=== PATIENT | male | born 1975 | race Caucasian/White ===

== ENCOUNTER 2017-12-22 14:11 | Emergency (ER) | payer SELFPAY ==
[2017-12-22 14:18] VITALS: BP 121/77
--- NOTE | 2017-12-22 16:05 | ER Document Report ---
ED Oral Problem - General Chief Complaint: Mouth Problem Stated Complaint: MOUTH PAIN, SWELLING Time Seen by Provider: 12/22/17 15:26 Mode of Arrival: Ambulatory Information source: Patient TRAVEL OUTSIDE OF THE [place] IN LAST 30 DAYS: No - HPI Patient complains to provider of: Toothache Onset: Last week Onset: Gradual Severity: Moderate Notes: Patient arrives with complaints of upper gum pain for the last several days. Patient states that he noticed a "bubble" to the left upper gum and feels like the right upper gum is swollen. He denies fevers. He denies any difficulty breathing or swallowing. He denies any nausea, vomiting, diarrhea. No facial swelling. No rash. No headache, blurred vision, numbness tingling or weakness. No chest pain or shortness of breath. No other complaints at this time. - Related Data Allergies/Adverse Reactions: No Known Allergies Allergy (Verified 12/22/17 15:33) Past Medical History - Social History Smoking Status: Current Every Day Smoker Chew tobacco use (# tins/day): No Frequency of alcohol use: None Drug Abuse: None Family History: Reviewed & Not Pertinent Patient has suicidal ideation: No Patient has homicidal ideation: No Renal/ Medical History: Denies: Hx Peritoneal Dialysis Infectious Medical History: Reports: Hx MRSA Review of Systems - Review of Systems -: Yes All other systems reviewed and negative Physical Exam - Vital signs Vitals: Temp Pulse Resp BP Pulse Ox 98.2 F 86 16 121/77 97 12/22/17 14:17 12/22/17 14:17 12/22/17 14:17 12/22/17 14:17 12/22/17 14:17 - Notes Notes: GENERAL: alert, cooperative, nontoxic, no distress. HEAD: normocephalic, atraumatic EYES: conjunctiva pink without discharge, no external redness or swelling. EARS: no external swelling, no external redness, no mastoid redness, swelling, tenderness. Ear canals are clear without swelling or drainage. TMs pearly andrea , no redness, no bulging, normal landmarks, no perforation. NOSE: atraumatic, no external swelling. clear rhinorrhea noted. MOUTH/THROAT: mucous membranes moist and pink, posterior pharynx without erythema, swelling, exudate. No trismus or drooling. Widespread dental decay. Small draining abscess to the left upper gum around tooth #11. No abscess noted to the right upper gums. No sublingual swelling or induration. NECK: soft, supple, full range of motion, no meningismus. CHEST: no distress, lungs clear and equal throughout. No wheezing, rales, rhonchi. CARDIAC: regular rate and rhythm, no murmur, normal capillary refill, normal pulses. No peripheral edema noted. BACK: full range of motion, no CVA tenderness. EXTREMITIES: full range of motion of all extremities. No redness, no swelling. NEURO: alert and oriented xO x 3, no focal deficits, full range of motion of all extremities. PYSCH: appropriate mood, affect. Patient is cooperative. SKIN: pink, warm, dry, no rash. Course - Re-evaluation Re-evalutation: 12/22/17 16:01 Patient is nontoxic appearing with stable vitals. Patient arrives with gum pain for the last several days. He is noted to have a small draining abscess to the left upper gum. There is no abscess noted to the right upper gums. He is in no distress. No sign of Otoniel's angina. Airway is not compromised. Patient will be discharged home with amoxicillin, 6 tramadol, Naprosyn, Peridex and instructions to follow-up with a dentist at the next available appointment. Instructed to stop smoking. Is instructed to follow-up sooner if he develops increasing pain, fever, swelling, difficulty breathing or swallowing, or any further concerns. The patient's emergency department workup and current diagnosis were explained to the patient and or family. Follow-up instructions were provided. Medications if prescribed were discussed. Instructions for when to return to the emergency department including specific worrisome symptoms were discussed with the patient and/or family. The patient is noted to have elevated blood pressure during today's emergency department visit. The patient was informed of this finding. The patient was instructed that this may be related to pre-hypertension and requires further evaluation with a primary care provider. The patient has no hypertensive symptoms at this time. - Vital Signs Vital signs: Temp Pulse Resp BP Pulse Ox 98.2 F 86 16 121/77 97 12/22/17 14:17 12/22/17 14:17 12/22/17 14:17 12/22/17 14:17 12/22/17 14:17 Discharge - Discharge Clinical Impression: Dental caries, Dental abscess Condition: Stable Disposition: HOME, SELF-CARE Instructions: Dental Infection or Abscess ([facility]), Dentist Additional Instructions: Take medications as prescribed. Stop smoking. Follow-up with a dentist at the next available appointment. Follow-up sooner for increasing pain, fever, swelling, persistent vomiting, or any further concerns. Your blood pressure was elevated during today's visit. Have this rechecked with your doctor. The medication you were prescribed today may cause drowsiness. Do not drive or operate heavy machinery while taking this medication. Prescriptions: Tramadol HCl [Ultram 50 mg Tablet] 50 mg PO Q6HP PRN #6 tablet PRN Reason: Amoxicillin Trihydrate [Amoxil 500 mg Capsule] 500 mg PO TID #30 cap Chlorhexidine Gluconate [Peridex 0.12% Oral Rinse 473 ml] 15 ml MM TID #1 bottle Naproxen [Naprosyn] 500 mg PO BID #20 tablet Forms: Elevated Blood Pressure, Smoking Cessation Education Referrals: [facility] [Provider Group] - Follow up as needed [facility] [Provider Group] - Follow up as needed
== END 2017-12-22 16:19 | disposition home or self-care (01) ==
LOC: ER 14:11
DX: K04.7 Periapical abscess without sinus (principal); K02.9 Dental caries, unspecified; R03.0 Elevated blood-pressure reading, without diagnosis of hypertension; F17.200 Nicotine dependence, unspecified, uncomplicated; Z86.14 Personal history of Methicillin resistant Staphylococcus aureus infection
CPT/HCPCS: 99282

== ENCOUNTER 2017-12-28 14:19 | Emergency (ER) | payer SELFPAY ==
--- NOTE | 2017-12-28 15:07 | ER Document Report ---
HPI - HPI Patient complains to provider of: dental pain Onset: Other Onset/Duration: Persistent Quality of pain: Achy Pain Level: 4 Context: Patient presents emergency department with complaints of dental pain. Reports he was seen here last week prescribed some antibiotics and pain medication. He reports the area was feeling better but now is switched to the other side of his mouth. He reports prior to my arrival in the room he felt something pop in his mouth and a nasty taste. He is thinking abscess popped on its own. He denies fever vomiting diarrhea. He reports he still has antibiotics left and he is also scheduled to meet with a dentist on . Patient has clear voice opens mouth wide no distress no trismus no ludwigs. Associated Symptoms: None Exacerbated by: Denies Relieved by: Denies Similar symptoms previously: Yes Recently seen / treated by doctor: Yes Past Medical History - General Information source: Patient - Social History Smoking Status: Current Every Day Smoker Chew tobacco use (# tins/day): No Frequency of alcohol use: None Drug Abuse: None Family History: Reviewed & Not Pertinent Patient has suicidal ideation: No Patient has homicidal ideation: No - Medical History Medical History: Negative Renal/ Medical History: Denies: Hx Peritoneal Dialysis Infectious Medical History: Reports: Hx MRSA Surgical Hx: Negative Vertical Provider Document - CONSTITUTIONAL Agree With Documented VS: Yes Exam Limitations: No Limitations General Appearance: WD/WN, No Apparent Distress - INFECTION CONTROL TRAVEL OUTSIDE OF THE [place] IN LAST 30 DAYS: No - HEENT HEENT: Atraumatic, Normocephalic. negative: Pharyngeal Erythema Mouth Diagram: 1 - c/o soreness to #7 gum, no obvious abscess, opens mouth wide, good airway, no ludwigs, voice clear, widespread dental decay - NECK Neck: Normal Inspection, Supple. negative: Lymphadenopathy-Left, Lymphadenopathy-Right - RESPIRATORY Respiratory: Breath Sounds Normal, No Respiratory Distress O2 Sat by Pulse Oximetry: 98 - CARDIOVASCULAR Cardiovascular: Regular Rate - GI/ABDOMEN Gastrointestinal: Abdomen Soft, Abdomen Non-Tender - MUSCULOSKELETAL/EXTREMETIES Musculoskeletal/Extremeties: JOHN KAMARA - NEURO Level of Consciousness: Awake, Alert, Appropriate Motor/Sensory: No Motor Deficit - DERM Integumentary: Warm, Dry Course - Re-evaluation Re-evalutation: 12/28/17 17:00 No sign of abscess widespread dental decay, patient was instructed to continue antibiotics and follow-up with dental on as scheduled. He verbalized understanding tall instructions. - Vital Signs Vital signs: Temp Pulse Resp BP Pulse Ox 98.8 F 79 18 135/78 H 98 12/28/17 14:23 12/28/17 14:23 12/28/17 14:23 12/28/17 14:23 12/28/17 14:23 Discharge - Discharge Clinical Impression: Pain, dental Condition: Stable Disposition: HOME, SELF-CARE Instructions: [facility], Toothache ([facility]) Additional Instructions: *You have been evaluated for dental pain *Continue to take medications as prescribed, use the rinse *Follow up with dentist as scheduled *Return to ED for worsening condition, changes, needs Monitor your blood pressure. Your blood pressure was elevated today. This may be because you were anxious, in pain or because you need medication. It is important to follow up with your primary care provider for full evaluation. Forms: Elevated Blood Pressure
[2017-12-28 15:27] VITALS: BP 117/86
== END 2017-12-28 15:26 | disposition home or self-care (01) ==
LOC: ER 14:19
DX: K08.89 Other specified disorders of teeth and supporting structures (principal); F17.200 Nicotine dependence, unspecified, uncomplicated
CPT/HCPCS: 99282

== ENCOUNTER 2018-07-09 18:06 | Emergency (ER) | payer SELFPAY ==
[2018-07-09 19:04] VITALS: BP 130/77
[2018-07-09] MEDS ORDERED: HYDROXYZINE PAMOATE 50 MG CAPSULE PO ONE (20:03)
--- NOTE | 2018-07-09 20:03 | ER Document Report ---
ED Skin Rash/Insect Bite/Abscs - General Chief Complaint: Insect Bite Stated Complaint: RASH Time Seen by Provider: 07/09/18 19:51 Mode of Arrival: Ambulatory Information source: Patient Notes: 42-year-old male presents to ED for complaint of insect bites to bilateral hands and back. He states that he started yesterday after he was working out in the yard [employer]. He states he is itching all over. TRAVEL OUTSIDE OF THE [place] IN LAST 30 DAYS: No - HPI Patient complains to provider of: Skin rash/lesion Onset: Other - States started yesterday Onset/Duration: Worse Quality of pain: No pain Severity: None Pain Level: Denies Skin Character: Rash - States they are insect bites Quality of rash: Itchy Identify cause: Yes Exacerbated by: Denies Relieved by: Denies Similar symptoms previously: Yes Recently seen / treated by doctor: No - Related Data Allergies/Adverse Reactions: No Known Allergies Allergy (Verified 07/09/18 18:07) Past Medical History - General Information source: Patient - Social History Smoking Status: Current Every Day Smoker Cigarette use (# per day): Yes - Pack per day Chew tobacco use (# tins/day): No Smoking Education Provided: Yes - 4 minutes Frequency of alcohol use: None Drug Abuse: None Occupation: [employer] Lives with: Spouse/Significant other Family History: Reviewed & Not Pertinent Patient has suicidal ideation: No Patient has homicidal ideation: No - Past Medical History Cardiac Medical History: Reports: None Pulmonary Medical History: Reports: None EENT Medical History: Reports: None Neurological Medical History: Reports: None Endocrine Medical History: Reports: None Renal/ Medical History: Reports: None Malignancy Medical History: Reports None GI Medical History: Reports: None Musculoskeletal Medical History: Reports None Skin Medical History: Reports Hx MRSA Psychiatric Medical History: Reports: None Traumatic Medical History: Reports: None Infectious Medical History: Reports: Hx MRSA Surgical Hx: Negative Past Surgical History: Reports: None Review of Systems - Review of Systems Constitutional: No symptoms reported EENT: No symptoms reported Cardiovascular: No symptoms reported Respiratory: No symptoms reported Gastrointestinal: No symptoms reported Genitourinary: No symptoms reported Male Genitourinary: No symptoms reported Musculoskeletal: No symptoms reported Skin: Rash Hematologic/Lymphatic: No symptoms reported Neurological/Psychological: No symptoms reported -: Yes All other systems reviewed and negative Physical Exam - Vital signs Vitals: Temp Pulse Resp BP Pulse Ox 98.5 F 96 18 130/77 H 98 07/09/18 19:02 07/09/18 19:02 07/09/18 19:02 07/09/18 19:02 07/09/18 19:02 Interpretation: Normal - General General appearance: Appears well, Alert - HEENT Head: Normocephalic, Atraumatic Eyes: Normal Pupils: PERRL - Respiratory Respiratory status: No respiratory distress Chest status: Nontender Breath sounds: Normal Chest palpation: Normal - Cardiovascular Rhythm: Regular Heart sounds: Normal auscultation Murmur: No - Abdominal Inspection: Normal Distension: No distension Bowel sounds: Normal Tenderness: Nontender Organomegaly: No organomegaly - Back Back: Normal, Nontender - Extremities General upper extremity: Normal inspection, Nontender, Normal color, Normal ROM , Normal temperature General lower extremity: Normal inspection, Nontender, Normal color, Normal ROM , Normal temperature, Normal weight bearing. No: Sergio's sign - Neurological Neuro grossly intact: Yes Cognition: Normal Orientation: AAOx4 [place] Coma Scale Eye Opening: Spontaneous [place] Coma Scale Verbal: Oriented [place] Coma Scale Motor: Obeys Commands [place] Coma Scale Total: 15 Speech: Normal Motor strength normal: LUE, RUE, LLE, RLE Sensory: Normal - Psychological Associated symptoms: Normal affect, Normal mood - Skin Skin Temperature: Warm Skin Moisture: Dry Skin Color: Normal Skin irregularity: Rash - She states they are insect bites to his face neck hands arms and abdomen and chest Location of irregularity: Face, Neck, Abdomen, Chest, Extremities Character of irregularity: Other - Rash that has been scratched multiple times unable to tell features of actual rash states rash is extremely itchy. Patient states it is insect bites that started yesterday Course - Re-evaluation Re-evalutation: 07/09/18 20:14 Patient was given instructions on treatment of rash to include decreased being overheated, or should area well with mild soap and cool water. Patient was given a prescription for Vistaril and treated with Vistaril while in the emergency room. Patient was given instructions for Benadryl, calamine lotion, or Caladryl lotion for his itch. Patient discharged home to follow-up with his primary doctor. - Vital Signs Vital signs: Temp Pulse Resp BP Pulse Ox 98.5 F 96 18 130/77 H 98 07/09/18 19:02 07/09/18 19:02 07/09/18 19:02 07/09/18 19:02 07/09/18 19:02 Discharge - Discharge Clinical Impression: Rash and nonspecific skin eruption Condition: Stable Disposition: HOME, SELF-CARE Instructions: Family Physicians / Practices Additional Instructions: Insect Bites You have been bitten by an insect. These bites can cause two types of swelling: an initial swelling due to insect saliva or injected poison, and a late reaction due to your body's allergic reaction. This initial local reaction may be uncomfortable but is not dangerous. Often there's an itchy "hive" at the bite location. This is treated with antihistamines, cold compresses, and resting the affected body part. The later reaction often develops about the second day. The entire area becomes very swollen, red, itchy, and tender. This is an allergic reaction. Your body is attacking the leftover insect saliva or venom. This type of allergy is unpleasant, but not dangerous. We treat this swelling with cortisone -type medicine. Sometimes we use antibiotics if we're worried about infection. Antihistamines help with the itch. If you develop a fever, chills, a red streak, or swollen glands in the area of the bite, infection may be starting. Return at once. Ibuprofen Ibuprofen is an excellent, safe drug for pain control. In addition, it has potent antiinflammatory effects which are beneficial, especially in the treatment of injuries, arthritis, or tendonitis. It's best to take ibuprofen with food. Persons with ulcer disease or allergy to aspirin should notify their physician of this before taking ibuprofen. Take the medication exactly as prescribed. Don't take additional doses unless instructed to do so by your doctor. If you develop wheezing, shortness of breath, hives, faintness, stomach pain, vomiting, or dark black stools, return for re-evaluation at once.Acetaminophen Acetaminophen may be taken for pain relief or fever control. It's much safer than aspirin, offering a wider range of "safe" dosages. It is safe during . Some brand names are Tylenol, Panadol, Datril, Anacin 3, Tempra, and Liquiprin. Acetaminophen can be repeated every four hours. The following are maximum recommended dosages: WEIGHT Dose Drops Elixir Chewable( 80mg) (LBS.) drprs=droppers tsp=teaspoon 6 40 mg .4 ml (1/2) 6-11 80 mg .8 ml (full) 1/2 tsp 1 tab 12-16 120 mg 1 1/2 drprs 3/4 tsp 1 1/2 tabs 17-23 160 mg 2 drprs 1 tsp 2 tabs 24-30 240 mg 3 drprs 1 1/2 tsp 3 tabs 30-35 320 mg 2 tsp 4 tabs 36-41 360 mg 2 1/4 tsp 4 1 /2 tabs 42-47 400 mg 2 1/2 tsp 5 tabs 48-53 480 mg 3 tsp 6 tabs 54-59 520 mg 3 1/4 tsp 6 1 /2 tabs 60-64 560 mg 3 1/2 tsp 7 tabs 65-70 600 mg 3 3/4 tsp 7 1 /2 tabs 71-76 640 mg 4 tsp 8 tabs 77-82 720 mg 4 1/2 tsp 9 tabs 83-88 800 mg 5 tsp 10 tabs >89 pounds or adults 650 mg to 900 mg Acetaminophen can be repeated every four hours. Maximum daily dose not to exceed 4000 mg. These maximum recommended dosages are slightly higher than the dosages written on the product container, but these dosages are very safe and well below the toxic dosage for acetaminophen. Antihistamines An antihistamine has been prescribed to control your symptoms. Antihistamines are used for many reasons, including itching, watering eyes, runny nose, allergic swelling, hives, and insect stings. Antihistamines may cause drowsiness, especially with the first dose. Do not operate machinery or drive while under the effects of the medication. Other common side effects include dry mouth and eyes. In older persons, antihistamines can occasionally cause urinary retention, constipation, and trouble focusing the eyes. Do not combine the medication with alcohol, or with any other medication without talking to your doctor Being overheated such as out in the hot humid air, hot showers, overdressing, or sweating can make the itching worse. Tried to stay in cool as much as possible. Take cool showers. Oatmeal baths sometimes can help. Peroxide is not a good idea on a constant basis is a will destroy the outer layer of the skin and can increase the risk of infection. Wash with a mild soap such as Dial or Dove and rinse well. You could put calamine lotion, Benadryl lotion, or Caladryl lotion on the rash to help with the itching. I have given you a prescription antihistamine. This can make you very sleepy. Please do not take this and drive or go to work. FOLLOW-UP CARE: If you have been referred to a physician for follow-up care, call the physician s office for an appointment as you were instructed or within the next two days. If you experience worsening or a significant change in your symptoms, notify the physician immediately or return to the Emergency Department at any time for re-evaluation. Prescriptions: Hydroxyzine Pamoate [Vistaril 50 mg Capsule] 50 mg PO DAILY #14 capsule Forms: Elevated Blood Pressure, Smoking Cessation Education, Return to Work
== END 2018-07-09 20:18 | disposition home or self-care (01) ==
LOC: ER 18:06
DX: R21 Rash and other nonspecific skin eruption (principal); F17.210 Nicotine dependence, cigarettes, uncomplicated; Z86.14 Personal history of Methicillin resistant Staphylococcus aureus infection
CPT/HCPCS: 99281

== ENCOUNTER 2018-08-28 17:23 | Emergency (ER) | payer SELFPAY ==
[2018-08-28 17:30] VITALS: BP 123/73
--- NOTE | 2018-08-28 18:40 | ER Document Report ---
ED Skin Rash/Insect Bite/Abscs - General Chief Complaint: Insect Bite Stated Complaint: POSSIBLE BUG BITES Time Seen by Provider: 08/28/18 18:17 Mode of Arrival: Ambulatory Information source: Patient, Relative Notes: Patient is a 42-year-old male comes emergency room complaining of having bites all over his body. States it started on his arms and hands and he states that he feels like they are moving on his body. Been 24 hours and that they started now covered pretty much of his arms and legs feet and between the toes. Patient states that it is very pruritic TRAVEL OUTSIDE OF THE [place] IN LAST 30 DAYS: No - HPI Patient complains to provider of: Possible insect bite Onset: Yesterday Onset/Duration: Sudden Quality of pain: No pain Severity: Moderate Pain Level: 3 Skin Character: Macules, Papules, Tenderness Skin Temperature: Warm Quality of rash: Itchy Identify cause: Yes Exacerbated by: Denies Relieved by: Denies Similar symptoms previously: No Recently seen / treated by doctor: No - Related Data Allergies/Adverse Reactions: No Known Allergies Allergy (Verified 08/28/18 17:25) Past Medical History - General Information source: Patient, Relative - Social History Smoking Status: Current Every Day Smoker Cigarette use (# per day): Yes Chew tobacco use (# tins/day): No Smoking Education Provided: Yes Frequency of alcohol use: Rare Drug Abuse: None Lives with: Family Family History: Reviewed & Not Pertinent Renal/ Medical History: Denies: Hx Peritoneal Dialysis Skin Medical History: Reports Hx MRSA Infectious Medical History: Reports: Hx MRSA Review of Systems - Review of Systems Constitutional: No symptoms reported EENT: No symptoms reported Cardiovascular: No symptoms reported Respiratory: No symptoms reported Gastrointestinal: No symptoms reported Genitourinary: No symptoms reported Male Genitourinary: No symptoms reported Musculoskeletal: No symptoms reported Skin: See HPI, Rash Hematologic/Lymphatic: No symptoms reported Neurological/Psychological: No symptoms reported -: Yes All other systems reviewed and negative Physical Exam - Vital signs Vitals: Temp Pulse Resp BP Pulse Ox 98.1 F 115 H 20 123/73 98 08/28/18 17:29 08/28/18 17:29 08/28/18 17:29 08/28/18 17:29 08/28/18 17:29 Interpretation: Tachycardic - General General appearance: Alert, Anxious - HEENT Head: Normocephalic, Atraumatic Eyes: Normal - Respiratory Respiratory status: No respiratory distress Chest status: Nontender Breath sounds: Normal. No: Rales, Rhonchi, Stridor, Wheezing - Cardiovascular Rhythm: Tachycardia Heart sounds: Normal auscultation Murmur: No - Neurological Neuro grossly intact: Yes Cognition: Normal Orientation: AAOx4 [place] Coma Scale Eye Opening: Spontaneous [place] Coma Scale Verbal: Oriented [place] Coma Scale Motor: Obeys Commands [place] Coma Scale Total: 15 Speech: Normal - Skin Skin Temperature: Warm Skin Moisture: Dry Skin Color: Normal Skin irregularity: Rash, other - Examination of patient's complaint shows he has multiple areas on his hands arms of what appear to be maculopapular areas that appear to have some tracking with them. He also has this located in spots on his body and back. Lower extremities I also have it including the feet and in between the toes. Presentation is that of scabies. He is also presenting with a little bit of a allergic reaction as well. He is itching uncontrollably in the ER. Course - Re-evaluation Re-evalutation: 08/28/18 18:41 I am going to write patient for Elimite and I am giving him the good Rx card where he can find the best deal at [facility] which is 30 [address] away for 3550 or [facility] for 3846 or [facility] for 4715 or [facility] 4715 or [facility] for 4773. I will add on to that a 5 mg Sterapred taper and Benadryl. - Vital Signs Vital signs: Temp Pulse Resp BP Pulse Ox 98.1 F 115 H 20 123/73 98 08/28/18 17:29 08/28/18 17:29 08/28/18 17:29 08/28/18 17:29 08/28/18 17:29 Discharge - Discharge Clinical Impression: Scabies Condition: Stable Disposition: HOME, SELF-CARE Instructions: Scabies (COUNTS INCLUDE 234 BEDS AT THE [facility]) Additional Instructions: Home and use the medication as prescribed. The cream he will placed on from head to toe and read the directions. I am also put you on a little steroid pack as well help with the ear irritation and inflammation and you can use Benadryl [id number] 50 mg which is 2 pills every 6 hours. I am giving you a card for the good Rx this will get you with the card on the closest cheapest place I can find with the card is [facility] for 38.46, [facility] is 47.15 and [facility] is a $47.73 I am sorry it so expensive but that is what it is. You may try if you want [id number] medication called RID. You can ask the pharmacist was located and it is a similar medication just not as strong it may work and it may not work. The recommendation for me to you is to get the prescription. Should you have any concerns or problems return to ER for recheck. Prescriptions: Permethrin [Elimite] 60 gm TP ONCE #1 cream.gm. Prednisone [Sterapred Ds] 10 mg PO ASDIR #1 tab.ds.pk
== END 2018-08-28 19:02 | disposition home or self-care (01) ==
LOC: ER 17:23
DX: B86 Scabies (principal); F17.210 Nicotine dependence, cigarettes, uncomplicated; Z86.14 Personal history of Methicillin resistant Staphylococcus aureus infection
CPT/HCPCS: 99281